=== PATIENT | female | born 1980 | race African-American/Black ===

== ENCOUNTER 2017-07-18 15:56 | Emergency (ER) | payer OTHER, MEDICAID ==
[2017-07-18] MEDS: LORAZEPAM 1 MG TAB PO (17:00)
== END 2017-07-18 18:44 | disposition home or self-care (01) ==
LOC: FTE 18:44
DX: F43.22 Adjustment disorder with anxiety (principal); R06.02 Shortness of breath
CPT/HCPCS: 71046; 93005; 99284-25